=== PATIENT | female | born 1975 | race Caucasian/White ===

== ENCOUNTER → 2024-10-30 09:23 | Outpatient (CLI) | payer BC, SELFPAY ==
--- NOTE | 2024-10-30 | DI.MG.S_ITS ---
BILATERAL DIGITAL DIAGNOSTIC MAMMOGRAM 3D/2D: 10/30/2024 CLINICAL: Left breast lump. Baseline mammo. No prior exams were available for comparison. The breasts are heterogeneously dense, which may obscure small masses (category c / 51-75% glandular tissue). A skin marker was placed in the area of clinical concern in the left breast, and no mammographic abnormality is identified. No significant masses, calcifications, or other findings are seen in either breast. IMPRESSION: INCOMPLETE: NEED ADDITIONAL IMAGING EVALUATION No mammographic abnormality in the area of clinical concern in the left breast. Recommend further evaluation with targeted breast ultrasound, which will immediately follow this exam. Based on the Tyrer Cuzick model (a risk assessment model) the patient's lifetime risk is 14.4% and her 10 year risk is 3.1%. According to the ACR, ACS, and NCCN guidelines, an annual breast MRI exam along with mammogram is recommended if the patient's lifetime risk is 20% or greater. This exam was interpreted at Station ID: [id number]. NOTE: For mammograms, a report in lay terms will be sent to the patient. Approximately 15% of breast malignancies will not be visualized mammographically. In the management of a palpable breast mass, a negative mammogram must not discourage biopsy of a clinically suspicious lesion. Electronically Signed By: Tri Charles M.D., Ph.D. eb/:10/30/2024 10:11:51 letter sent: Additional Imaging Needed ACR BI-RADS Category 0: Incomplete: Need Additional Imaging Evaluation
--- NOTE | 2024-10-30 09:26 | DI.US.S_ITS ---
LIMITED ULTRASOUND OF LEFT BREAST AND AXILLA: 10/30/2024 CLINICAL: Palpable left breast lump. Comparison is made to exam dated: 10/30/2024 mammogram - [facility]. Real-time ultrasound of the left breast 12-1 o'clock, and axilla regions was performed. Hernandez scale images of the real-time examination were reviewed. No sonographic abnormality is seen in the area of clinical concern in the left breast from 11 to 1 o'clock at a distance of 1 to 6 cm from the nipple. Incidental benign simple cyst measuring up to 5 mm is seen at 12 o'clock, 2 cm from the nipple. IMPRESSION: BENIGN No sonographic abnormality in the area of clinical concern. Incidental 5 mm simple cyst at 12 o'clock position is benign. No mammographic or sonographic evidence of malignancy. A 1 year screening mammogram is recommended. Clinical follow-up is also recommended, and further management of palpable abnormalities or other focal signs or symptoms should be based on the results of clinical evaluation. If palpable abnormality or other concerning symptom persists or progresses, further clinical evaluation should be considered. Findings and recommendations were conveyed to the patient during today's evaluation. This exam was interpreted at Station ID: [id number]. Electronically Signed By: Tri Charles M.D., Ph.D. eb/:10/30/2024 10:48:24 letter sent: Normal Exam ACR BI-RADS Category 2: Benign
== END ==
PROVIDERS: Family Provider Family Medicine; PCP Registered Nurse; Referring Provider Registered Nurse; Visit Provider Registered Nurse
DX: R92.2 Inconclusive mammogram (principal); N63.21 Unspecified lump in the left breast, upper outer quadrant; N60.02 Solitary cyst of left breast; R92.333 Mammographic heterogeneous density, bilateral breasts
CPT/HCPCS: 76642; 77066; G0279